=== PATIENT | male | born 1945 | race Caucasian/White ===

== ENCOUNTER → 2024-04-08 09:37 | Outpatient (BNVA) | payer MEDICARE, SELFPAY | PROVIDERS: PCP Internal Medicine; Visit Provider Internal Medicine Rheumatology ==

== ENCOUNTER 2024-04-15 10:16 | Outpatient (AMB) | payer MEDICARE, SELFPAY ==
[2024-04-15 10:40] VITALS: BP 130/74; PULSE 80; O2SAT 98; BMI 19.2
--- NOTE | 2024-04-15 10:40 | A.OFFVIS_ITS ---
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 He last saw Dr. Contreras at the arthritis treatment center on 10/07/2023. 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 Denies joint stiffness. He feels well. Infrequently he will waking up from sleep with numb hands and has to shake it off. He has pain in left buttocks area with acute onset and spontaneous resolution. It occurs occasionally. He applies heat to the area with benefit. He he has not self medicating. [facility] Medical History (Updated 04/15/24 @ 11:41 by Kelvin Contreras MD) Colostomy care BNC (bladder neck contracture) Diverticulitis Thalassemia Pulmonary nodules Hyperlipidemia Glaucoma Deaf Allergic rhinitis Surgical History (Updated 04/15/24 @ 11:12 by Ruby Adler CMA) S/P laparoscopic colectomy H/O transurethral resection of prostate Family History (Updated 04/15/24 @ 11:14 by Ruby Adler CMA) Mother No problems noted. Social History (Updated 04/15/24 @ 11:15 by Ruby Adler CMA) Household Members: Spouse Alcohol intake: never Patient Tobacco Use Status: Never used Tobacco Review of Systems Const All systems reviewed & are unremarkable except as noted in HPI and below Physical Exam Vital Signs: Last Vital Signs Pulse 80 04/15/24 10:40 BP 130/74 04/15/24 10:40 Pulse Ox 98 04/15/24 10:40 Oxygen Delivery Method Room Air 04/15/24 10:40 BMI result Body Mass Index 19.2 Const Other: General: Comfortable CVS: RRR Respiratory: clear to auscultation bilaterally. Good respiratory effort Skin: No lesions seen MSK: No tenderness of any joints. No synovitis. 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 Shoulder abduction is about 160 degrees bilateral. He has limited full internal rotation. External rotation of bilateral shoulders is good. Unable to elicit tenderness of gluteal region but he reports that he has pain localized to left lateral gluteal region. Limited full external rotation of bilateral hips. Knee flexion bilateral is 45 degrees. Assessment & Plan Assessment & Plan (1) Muscle strain of left gluteal region: Comment: Intermittent. Discussed conservative management. Code(s): S76.012A - Strain of muscle, fascia and tendon of left hip, initial encounter Category: Medical Qualifiers: Encounter type: initial encounter Qualified Code(s): S76.012A - Strain of muscle, fascia and tendon of left hip, initial encounter Plan: PT ordered. Patient prefers to have PT in [facility] near his home. Requisition given to patient Continue to apply heat to affected area as needed Return to clinic in 6 months or sooner if needed with prosthetic makeup designer. (2) Rheumatoid arthritis: Comment: Initial diagnosis. He was on hydroxychloroquine but it was discontinued due to retinal changes. He has had history of episodic joint pain and swelling. History of being diagnosed with gout (not crystal proven). Repeat uric acid levels have been less than 6. I have recommended for him to have clinic visit while he is in a flare for possible diagnostic arthrocentesis. Asymptomatic without deforming joint changes suggestive of inflammatory arthritis. He has not had an episode in a year. Code(s): M06.9 - Rheumatoid arthritis, unspecified Category: Medical Qualifiers: Rheumatoid arthritis location: unspecified site Rheumatoid factor presence: unspecified presence Qualified Code(s): M06.9 - Rheumatoid arthritis, unspecified Plan: Return to clinic in 6 months with prosthetic makeup designer. Monitor clinically (3) Gout: Comment: Presumed diagnosis due to episodic joint swelling involving his feet. He has not had an episode in a year. Code(s): M10.9 - Gout, unspecified Category: Medical Qualifiers: Chronicity: unspecified Gout etiology: unspecified cause Gout site: foot Laterality: unspecified laterality Qualified Code(s): M10.9 - Gout, unspecified Plan: Monitor clinically I have asked him to call office for urgent appointment if he having an episode of joint swelling and pain. He will need prosthetic makeup designer scheduled for visit. Orders: Orders PT Evaluation and Treatment Today S76.012A - Strain of muscle, fascia and tendon of left hip, initial encounter Coding Level of Care Code Est Pt Level 4 (77124) Complex EM visit Add On G2211 Diagnoses Muscle strain of left gluteal region, initial encounter S76.012A Encounter type: initial encounter Rheumatoid arthritis, involving unspecified site, unspecified whether rheumatoid factor present M06.9 Rheumatoid arthritis location: unspecified site Rheumatoid factor presence: unspecified presence Gout of foot, unspecified cause, unspecified chronicity, unspecified laterality M10.9 Chronicity: unspecified Gout etiology: unspecified cause Gout site: foot Laterality: unspecified laterality
--- OUTSIDE RECORDS SUMMARY | 2024-04-15 12:14 | XMS_ITS | Clinical Summary ---
Author Organization [facility] [address] [facility] Building Address [address] [place] [address] Phone Care Team Providers Care Lab Rep Name Role Phone Dillon Lal MD Primary Care Provider [phone] Allergies Active Allergy Reactions Criticality Noted Date Comments Oxycodone-Acetaminophe n Nausea And Vomiting 05/17/2005 Sulfa (Sulfonamide Antibiotics) 05/17/2005 Other Reaction(s): Numbness, tingling or swelling of the lips, tongue or mouth Terazosin Hcl 08/22/2005 syncopal Medications Medication Sig Dispensed Refills Start Date End Date Status ascorbic acid (VITAMIN C) 500 mg tablet Take 500 mg by mouth daily. Active calcium carbonate-vitamin D3 (Calcium 600 + D,3,) 600 mg-5 mcg (200 unit) per tablet Take 1 Tablet by mouth daily. Active ibuprofen (ADVIL,MOTRIN) 600 mg tablet Take 1 Tablet by mouth daily. 03/06/2023 Active multivit-min/folic acid/lutein (CENTRUM SILVER ORAL) Take by mouth. Active polyethylene glycol (PEG) 17 gram/dose oral powder Take 17 g by mouth daily. Active cetirizine (ZyrTEC) 10 mg tablet Take 10 mg by mouth daily. Active cholecalciferol (VITAMIN D-3) 25 mcg (1,000 unit) tablet Take 1,000 Units by mouth daily. Active ferrous sulfate 325 mg (65 mg elemental iron) tablet Take 325 mg by mouth daily. Active fluticasone propionate (FLONASE) 50 mcg/actuation nasal spray 1 spray per nostril twice per day, as needed for nasal congestion 05/16/2021 Active latanoprost (XALATAN) 0.005 % ophthalmic solution 1 Drop at bedtime. ou Active psyllium (METAMUCIL) 0.52 gram capsule Take by mouth. Act sho saw palmetto 450 mg capsule Take 450 mg by mouth daily. Active timolol (TIMOPTIC) 0.5 % ophthalmic solution 1 Drop 2 times daily. Active traMADoL (ULTRAM) 50 mg tablet Take 1 Tablet by mouth 3 times daily as needed. 12/13/2022 Active Active Problems Problem Noted Date Diagnosed Date Thalassemia 02/12/2024 Nuclear sclerosis of both eyes 12/11/2023 Overview (02/12/2024): Glaucoma. Seen by eye doc in 2023 JOHN (obstructive sleep apnea) 07/03/2023 Tubular adenoma of colon 02/05/2022 Trochanteric bursitis of right hip 06/27/2021 Positive FIT (fecal immunochemical test) 021 Hypercholesteremia 04/15/2020 Environmental and seasonal allergies 06/26/2018 Pulmonary nodules/lesions, multiple 05/12/2015 Glaucoma 06/04/2014 Diverticulitis large intestine 03/22/2008 Overview (02/12/2024): Required colostomy 07/2018, then reversal 05/25/[address] Don Cervical osteoarthritis 11/07/2007 Overview (02/12/2024): MRI with multiple levels of DJD - 2007 Diverticulitis of colon without hemorrhage 08/22 Overview (02/12/2024): As of 01/2018, hx since 2008 of 6 attacks of diverticulitis, no serious complications. [facility] +sigmoid uncomplicated diverticulitis 01/25/18 CT Segmental colon resection/colostomy 2019 Colostomy reversal 2019 Deaf 07/18/2005 Pain in joint involving shoulder region 05/18/19 Overview (02/12/2024): AC DJD, impingment Seronegative rheumatoid arthritis 05/17/2005 Overview (02/12/2024): sero neg, FRANCI pos on hydroxychloroquine; last eye check-up 07/2010. 2012; May 2014, 2017, Apr 2018, 06/03 Some retinal changes 03/06: hydroxychloroquine was stopped Encounters Date Type Department Care Team Description 04/13/2024 8:30 AM EST Office Visit Internal Medicine - [facility] [address] [place] [id number] Dillon Lal MD Routine general medical examination at a health care facility (Primary Dx); Screening for prostate cancer; Other thalassemia (CMS/HCC) from Last 3 Months Immunizations Name Administration Dates Next Due Influenza trivalent, 0.5mL ( Fluad) 65yo and older 12/22/2019,12/27/2017,12/16/2016 Influenza trivalent, 0.5mL, preservative free (Fluarix; FluLaval; Fluzone) ages 6mo and older (Afluria) 3 years and older 12/31/2014,01/08/2014,12/29/2012,12/27,12/11/2010,01/18/2010,12/02/2008 Influenza, Unspecified 12/16/2020 PPD Test 05/12/2001 [employer] SARS-CoV-2 COVID-19, mRNA, LNP-S, preservative free 07/22/2021,07/02/2020,06/11/2020,03/24 Pneumococcal conjugate 13 va lent (Prevnar 13, PCV13) 2mo and older 03/10/2015 Pneumococcal polysaccharide 23 valent (Pneumovax 23) 2yo and older 03/03/2012,07/18/2005 Td Tetanus diptheria (Tdvax) 7yo and older 09/22/2021,08/18/2007,05/12/2001 Tdap Tetanus diptheria acell ular pertussis (Boostrix; Adacel) 7yo and older 10/29/2011 Zoster Live 02/16/2011 Zoster recombinant (Shingrix ) 19yo and older 08/16/2021 Surgical History Surgery Date Site/Laterality Comments FLEXIBLE SIGMOIDOSCOPY 1997 PROCEDURE: HISTORICAL FLEXIBLE SIGMOIDOSCOPY; COMMENT: This was a Flex Sig, not a colonoscopy, neg TURP / TRANSURETHRAL INCISION / DRAINAGE PROSTATE 11/14/2005 PROCEDURE: HISTORICAL TURP; COMMENT: Dr. Champion COLONOSCOPY 03/22/2008 PROCEDURE: HISTORICAL COLONOSCOPY; COMMENT: diverticulosis OTHER SURGICAL HISTORY 08/15/2018 PROCEDURE: MT LAPS COLECTOMY PRTL W/END CLST & CLSR DSTL SGM; COMMENT: [facility]; Dr. Don OTHER SURGICAL HISTORY 03/25/2019 PROCEDURE: MT CYSTOURETHROSCOPY W/INTERNAL URETHROTOMY MALE; COMMENT: Dr Zacarias Handley did bladder neck contracture urethrotomy OTHER SURGICAL HISTORY 05/25/2019 PROCEDURE: MT REVJ COLOSTOMY COMP RCNSTJ IN-DEPTH SPX; COMMENT: colostomy closure/removal with lysis of extensive adhesions Dr Don COLONOSCOPY 06/21/2020 PROCEDURE: HISTORICAL COLONOSCOPY; COMMENT: 4 mm descending colon polyp: Tubular adenoma. ROTATOR CUFF REPAIR 12/13/2022 Left PROCEDURE: HISTORICAL ROTATOR CUFF REPAIR; COMMENT: Left rotator cuff repair and augmentation. Biceps tenotomy. Subacromial decompression. 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 Abdominal pain, epigastric 05/06/2006 DX:Ab dominal pain, epigastric; COMMENT: Negative upper GI endoscopy 05.06.06. Probably caused by ibuprofen, resolution with discontinuation of ibuprofen. Cervical osteoarthritis 11/07/2007 DX:Cervi oliver osteoarthritis; COMMENT: MRI with multiple levels of DJD - 2007 Rheumatoid arthritis(714.0) 05/17/2005 DX:R heumatoid arthritis(714.0); COMMENT: sero neg, FRANCI pos on hydroxychloroquine; last eye check-up 11/2007 Diverticulosis of colon (wit hout mention of hemorrhage) 03/22/2008 DX:Diverticulosis of colon ( without mention of hemorrhage); COMMENT: Incidental finding at colonoscopy 03/22/2008. 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/2012 DX:Posterior vitreous detach ment of left eye; COMMENT: Dr Tejada Glaucoma 06/04/2014 DX:Glaucoma Glaucoma 06/04/2014 DX:Glaucoma Pulmonary nodules/lesions, multiple 05/12/2015 DX:Pulmonary nodules/lesions, multiple JOHN (obstructive sleep apnea) 07/03/2023 DX :JOHN (obstructive sleep apnea) Family History Medical History Relation Name Comments Colon cancer Neg Hx Relation Name Status Comments Father (Age 60's) kidney f ailure Pt is an only child Mother (Age 82) stroke Social History Tobacco Use Types Packs/Day Years Used Date Smoking Tobacco: Never Smokeless Tobacco: Never Tobacco Cessation:Counseling Given: Not Answered Alcohol Use Standard Drinks/Week Comments No 0 (1 standard drink = 0.6 oz pur e alcohol) Sex and Gender Information Value Date Recorded Sex Assigned at Not on file Gender Identity Not on file Sexual Orientation Not on file Job Start Date Occupation Industry Not on file Not on file Not on file Obstetrics History Last Filed Vital Signs Vital Sign Reading Time Taken Comments Blood Pressure 130/80 04/13/2024 8:35 AM EST Pulse 78 04/13/2024 8:35 AM EST Temperature - - Respiratory Rate - - Oxygen Saturation - - Inhaled Oxygen Concentration - - Weight 58.8 kg (129 lb 9.6 oz) 04/13/2024 8:35 A M EST Height 168.9 cm (5' 6.5 ) 04/13/2024 8:35 AM EST Body Mass Index 20.6 04/13/2024 8:35 AM EST Plan of Treatment Upcoming Encounters Date Type Department Care Team (Late st Contact Info) Description 08/25/2024 1:00 PM EDT Office Visit Internal Medicine - [facility] [address] [place], [place] [phone] Dillon Lal MD [address] [place] [address] [place] [id number] Health Maintenance Due Date Last Done Comments RSV Immunization Patients 60+ Years Old (1 - 1-dose 75+ series) 2021 Depression Screening 02/24/2022 Falls Risk Assessment 02/24/2022 Medicare Annual Wellness Visit 02/24/2022 Social Influencers of Health Screening 02/24/2022 Colorectal Cancer Screening: Colonoscopy 06/22/2027 06/21/2020 Cholesterol Screening (Lipid Panel) 08/04/2028 08/05/2023, 08/05/2023 DTaP,Tdap,and Td Vaccines (5 - Td or Tdap) 09/23/2031 09/22/2021, 10/29/2011, 08/18/2007, Additional history exists Hepatitis C Screening Completed 03/08/2014 Zoster Vaccines Completed 10/18/2021, 06/0 03/2021, 02/16/2011 Pneumococcal Vaccine: 65+ Years Completed 02/02/2022, 03/10/2015, 03/03/2012, Additional history exists COVID-19 Vaccine Completed 12/04/2023, 05/2022, 12/08/2021, Additional history exists Influenza Vaccine Completed 12/04/2023, , 11/23/2021, Additional history exists HIB Vaccines Aged Out No longer eligi ble based on patient's age to complete this topic HPV Vaccines Aged Out No longer eligi ble based on patient's age to complete this topic Hepatitis A Vaccines Aged Out No long er eligible based on patient's age to complete this topic Hepatitis B Vaccines Aged Out No long er eligible based on patient's age to complete this topic IPV Vaccines Aged Out No longer eligi ble based on patient's age to complete this topic MMR Vaccines Aged Out No longer eligi ble based on patient's age to complete this topic Meningococcal ACWY Vaccine Aged Out N o longer eligible based on patient's age to complete this topic RSV Immunization Patients Under 20 months Aged Out No longer eligible based on patient's age to complete this topic Varicella Vaccines Aged Out No longer eligible based on patient's age to complete this topic Procedures Procedure Name Priority Date/Time Associated Diagnosis Comments LIPID PANEL Routine 08/05/2023 COLONOSCOPY Routine 06/21/2020 HEPATITIS C SCREENING Routine 03/08/2014 from Last 3 Months or Most Recently Relevant to Health Maintenance Results * (ABNORMAL) Lipid panel (08/05/2023) LDL/HDL Ratio 3 0 - 4 Triglycerides 78 0 - 150 mg/dL Cholesterol 167 0 - 200 mg/dL HDL 51 40 mg/dL LDL Cholesterol 101(A) 0 - 100 mg/dL Blood Venous blood specimen / Unknown Historical Provider LAB BLOOD ORDERAB LES * Colonoscopy (06/21/2020) Colonoscopy No Interpretation , Abstracted Anatomical Region Laterality Modality Other Historical Provider MD BELTRAN MAINCHERYL E * Hepatitis C Screening (03/08/2014) Hepatitis C Screening Abstracted Historical Provider MD BELTRAN MAINCHERYL E from Last 3 Months or Most Recently Relevant to Health Maintenance Advance Directives Documents on File Type Date Recorded 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 Color 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 Expl 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 Health Care Decision (hx) 12/14/2022 AD UMAÑA DIRECTIVE Health Care Decision (hx) 12/14/2022 AD UMAÑA DIRECTIVE Health Care Decision (hx) 06/21/2020 AD UMAÑA DIRECTIVE Health Care Decision (hx) 06/21/2020 AD UMAÑA DIRECTIVE Health Care Decision (hx) 06/21/2020 AD UMAÑA DIRECTIVE Health Care Decision (hx) 06/21/2020 AD UMAÑA DIRECTIVE Health Care Decision (hx) 06/21/2020 AD UMAÑA DIRECTIVE Health Care Decision (hx) 06/21/2020 AD UMAÑA DIRECTIVE Health Care Decision (hx) 06/21/2020 AD UMAÑA DIRECTIVE Health Care Decision (hx) 05/25/2019 AD UMAÑA DIRECTIVE Health Care Decision (hx) 05/25/2019 AD UMAÑA DIRECTIVE Health Care Decision (hx) 05/25/2019 AD UMAÑA DIRECTIVE Health Care Decision (hx) 05/25/2019 AD UMAÑA DIRECTIVE Health Care Decision (hx) 05/25/2019 AD UMAÑA DIRECTIVE Health Care Decision (hx) 05/25/2019 AD UMAÑA DIRECTIVE Health Care Decision (hx) 05/25/2019 AD UMAÑA DIRECTIVE Health Care Decision (hx) 05/25/2019 AD UMAÑA DIRECTIVE Health Care Decision (hx) 05/25/2019 AD UMAÑA DIRECTIVE Health Care Decision (hx) 08/13/2018 AD UMAÑA DIRECTIVE Health Care Decision (hx) 08/13/2018 AD UMAÑA DIRECTIVE Health Care Decision (hx) 08/13/2018 AD UMAÑA DIRECTIVE Health Care Decision (hx) 08/13/2018 AD UMAÑA DIRECTIVE Health Care Decision (hx) 08/13/2018 AD UMAÑA DIRECTIVE Health Care Decision (hx) 08/13/2018 AD UMAÑA DIRECTIVE Health Care Decision (hx) 08/13/2018 AD UMAÑA DIRECTIVE Health Care Decision (hx) 08/13/2018 AD UMAÑA DIRECTIVE Health Care Decision (hx) 08/13/2018 AD UMAÑA DIRECTIVE Health Care Decision (hx) 08/13/2018 AD UMAÑA DIRECTIVE Care Teams Lab Rep Relationship Specialty Start Date End Date Dillon Lal MD [address] [place] [id number] PCP - General Internal Medicine 11/16/19
--- OUTSIDE RECORDS SUMMARY | 2024-04-15 12:14 | XMS_ITS | Encounter Summary ---
Author Organization [facility] Address [address] [place] [address] Care Team Providers Care Housing Case Manager Name Role Phone Dillon Lal MD Primary Care Provider [phone] Reason for Visit * Reason Comments Annual Exam Encounter Details Date Type Department Care Team (Late st Contact Info) Description 04/13/2024 8:30 AM EST Office Visit Internal Medicine - [address] [phone] Dillon Lal MD [address] [place] [id number] Routine general medical examination at a health care facility (Primary Dx); Screening for prostate cancer; Other thalassemia (CMS/HCC) Social History Tobacco Use Types Packs/Day Years [...] file Not on file Not on file documented as of this encounter Last Filed Vital Signs Vital Sign Reading [...] Mass Index 20.6 04/13/2024 8:35 AM EST documented in this encounter Progress Notes * Dillon Lal MD - 04/13/2024 8:30 AM EST CHIEF COMPLAINT: Chief Complaint Patient presents with Annual Exam IDENTIFIER:Ty Mosqueda is a 78 y.o. old male who presents for evaluation of general medical health. HPI: Patient is a 78-year-old man who presents to the office today for his physical. Patient is deaf and anime designer services were used. [facility] #[id number] Patient followed up with orthopedics on 11/27/2023 to follow-up on his left shoulder. He has undergone left rotator cuff repair (12/05/2022) and did well postsurgery. Advised to follow-up as needed. He followed up with db2 systems programmer on 12/11/2023 for his glaucoma. He followed up with his shear scrapman on 10/08/2023 for his rheumatoid arthritis, gout. No recent flares. He has previously undergone a sleep study done previously on 11/30/2022 which showed mild obstructive sleep apnea and associated significant oxygen desaturations. He was referred to pulmonology but donot have the notes. Patient has a history of lung nodules which have remained stable. His CT chest done 2018 was stableand no further radiological work-up was needed. He does not smoke cigarettes. He has a history of thalassemia and his anemia levels have been stable. Patient's last colonoscopy was done on 06/21/2020 which revealed a polyp in the mid descending colon,diverticulosis. Biopsy revealed tubular adenoma. Repeat colonoscopy is recommended again in 7 to 10years as per GI. ROS: GENERAL: No malaise, significant weight loss or fever HEENT: see hpi NECK: No lumps, goiter, pain or significant neck swelling RESPIRATORY: No cough, wheezing or shortness of breath CARDIOVASCULAR: No chest pain, leg swelling or palpitations GI: No abdominal discomfort, blood in stools or black stools : No dysuria, frequency or incontinence MUSCULOSKELETAL: see hpi SKIN: No lesions, rash or itching PSYCH: No sleep disturbance, mood disorder or recent psychosocial stressors. HEMATOLOGY/LYMPHOLOGY see hpi ENDOCRINE: No cold or heat intolerance, polyuria, polydipsia or goiter. NEURO: No persistent headache, syncope, seizures, weakness or numbness PAST MEDICAL HISTORY: Patient Active Problem List Diagnosis Date Noted Thalassemia 02/12/2024 Nuclear sclerosis of both eyes 12/11/2023 JOHN (obstructive sleep apnea) 07/03/2023 Tubular adenoma of colon 02/05/2022 Trochanteric bursitis of right hip 06/27/2021 Positive FIT (fecal immunochemical test) 04/29/2020 Hypercholesteremia 04/15/2020 Environmental and seasonal allergies 06/26/2018 Pulmonary nodules/lesions, multiple 05/12/2015 Glaucoma 06/04/2014 Diverticulitis large intestine 03/22/2008 Cervical osteoarthritis 11/07/2007 Diverticulitis of colon without hemorrhage 08/22/2005 Deaf 07/18/2005 Pain in joint involving shoulder region 05/17/2005 Seronegative rheumatoid arthritis (CMS/HCC) 05/17/2005 PAST SURGICAL HISTORY: Past Surgical History: Procedure Laterality Date COLONOSCOPY 03/22/2008 PROCEDURE: HISTORICAL COLONOSCOPY; COMMENT: diverticulosis COLONOSCOPY 06/21/2020 PROCEDURE: HISTORICAL COLONOSCOPY; COMMENT: 4 mm descending colon polyp: Tubular adenoma. FLEXIBLE SIGMOIDOSCOPY 1997 PROCEDURE: HISTORICAL FLEXIBLE SIGMOIDOSCOPY; COMMENT: This was a Flex Sig, not a colonoscopy, neg OTHER SURGICAL HISTORY 08/15/2018 PROCEDURE: AR LAPS COLECTOMY PRTL W/END CLST & CLSR DSTL SGM; COMMENT: [facility]; Dr. Don OTHER SURGICAL HISTORY 03/25/2019 PROCEDURE: AR CYSTOURETHROSCOPY W/INTERNAL URETHROTOMY MALE; COMMENT: Dr Zacarias Handley did bladder neck contracture urethrotomy OTHER SURGICAL HISTORY 05/25/2019 PROCEDURE: AR REVJ COLOSTOMY COMP RCNSTJ IN-DEPTH SPX; COMMENT: colostomy closure/removal with lysis of extensive adhesions Dr Don ROTATOR CUFF REPAIR Left 12/13/2022 PROCEDURE: HISTORICAL ROTATOR CUFF REPAIR; COMMENT: Left rotator cuff repair and augmentation. Biceps tenotomy. Subacromial decompression. TURP / TRANSURETHRAL INCISION / DRAINAGE PROSTATE 11/14/2005 PROCEDURE: HISTORICAL TURP; COMMENT: Dr. Champion IMMUNIZATIONS/INJECTIONS: Most Recent Immunizations Administered Date(s) Administered COVID-19 (Moderna/Spikevax) 12yo and older 12/04/2023 Influenza trivalent, 0.5mL (Fluad) 65yo and older 12/22/2019 Influenza trivalent, 0.5mL, preservative free (Fluarix; FluLaval; Fluzone) ages 6mo and older (Afluria) 3 years and older 12/31/2014 Influenza, Unspecified 12/16/2020 Moderna (age 6mo & older) Bivalent, COVID-19, 0.5 mL or 0.25 mL dosage 12/08/2021 PPD Test 05/12/2001 Pfizer (ages 12 & older) Bivalent, COVID-19 10/18/2022 Pfizer SARS-CoV-2 COVID-19, mRNA, LNP-S, preservative free 07/22/2021 Pneumococcal conjugate 13 valent (Prevnar 13, PCV13) 2mo and older 03/10/2015 Pneumococcal polysaccharide 23 valent (Pneumovax 23) 2yo and older 03/03/2012 Td Tetanus diptheria (Tdvax) 7yo and older 09/22/2021 Tdap Tetanus diptheria acellular pertussis (Boostrix; Adacel) 7yo and older 10/29/2011 Zoster Live 02/16/2011 Zoster recombinant (Shingrix) 19yo and older 08/16/2021 HEALTH MAINTENANCE: Health Maintenance Topic Date Due RSV Immunization Patients 60+ Years Old (1 - 1-dose 75+ series) Never done Falls Risk Assessment Never done Depression Screening Never done Social Influencers of Health Screening Never done Medicare Annual Wellness Visit Never done Colorectal Cancer Screening: Colonoscopy 06/22/2027 Cholesterol Screening (Lipid Panel) 08/04/2028 DTaP,Tdap,and Td Vaccines (5 - Td or Tdap) 09/23/2031 Influenza Vaccine Completed Pneumococcal Vaccine: 65+ Years Completed Zoster Vaccines Completed Hepatitis C Screening Completed COVID-19 Vaccine Completed HIB Vaccines Aged Out Hepatitis B Vaccines Aged Out IPV Vaccines Aged Out Hepatitis A Vaccines Aged Out MMR Vaccines Aged Out Varicella Vaccines Aged Out Meningococcal ACWY Vaccine Aged Out HPV Vaccines Aged Out RSV Immunization Patients Under 20 months Aged Out SOCIAL HISTORY: Social History Tobacco Use Smoking status: Never Smokeless tobacco: Never Substance Use Topics Alcohol use: No FAMILY HISTORY: Family Status Relation Name Status Neg Hx (Not Specified) Father at age 60's kidney failure Pt is an only child Mother at age 82 stroke No partnership data on file Family History Problem Relation Name Age of Onset Colon cancer Neg Hx ACTIVE MEDICATIONS: No outpatient medications have been marked as taking for the 04/13/24 encounter (Office Visit) with Dillon Lal MD. Allergies Allergen Reactions Oxycodone-Acetaminophen Nausea And Vomiting Sulfa (Sulfonamide Antibiotics) Other Reaction(s): Numbness, tingling or swelling of the lips, tongue or mouth Terazosin Hcl syncopal PHYSICAL EXAM: Visit Vitals BP 130/80 Pulse 78 Ht 1.689 m (66.5 ) Wt 58.8 kg (129 lb 9.6 oz) BMI 20.60 kg/m?? Smoking Status Never BSA 1.67 m?? Body mass index is 20.6 kg/m??. APPEARANCE: Alert and in no acute distress EYES: PERRLA, conjunctiva and sclera normal. EARS: External ears normal. NOSE/SINUS: Nares normal. Septum midline. Mucosa normal. No drainage or sinus tenderness. THROAT: no erythema or exudates NECK: Neck supple, no adenopathy, thyroid symmetric and of normal size HEART: RRR with normal S1 and S2 ,no murmurs LUNG: clear to auscultation LYMPH NODES: grossly normal ABDOMEN: Bowel sounds normoactive, no bruits, soft, non-tender, without organomegaly or palpable masses (MALE): Patient declined RECTAL (MALE): patient declined BACK: No pain to palpation with good flexion and extension EXTREMITIES: Extremities warm and well perfused without edema NEURO: Awake, alert and oriented x 3 with symmetrical reflexes SKIN: Skin color, texture, turgor normal. LABS: IMPRESSION: 1. Routine general medical examination at a health care facility 2. Screening for prostate cancer 3. Other thalassemia (CMS/HCC) ADDITIONAL ORDERS: None Orders Placed This Encounter Procedures CBC and differential Basic metabolic panel Aspartate aminotransferase Alanine aminotransferase Lipid panel with reflex to direct LDL Prostate specific antigen screen Vitamin B12 and folate Iron PLAN: Screening PSA levels ordered. Anemia panel ordered. - Prostate cancer screening with digital rectal exam and PSA testing in those expected to live for at least ten years - ordered - Colon cancer screening (colonoscopy every 10 years/annual FOBT plus flexi sigmoidoscopy every 5 years/double-contrast BE every 5 years/Cologuard every 3 years/Annual FOBT) - up to date. May discontinue at age 80 at the discretion of patient and provider. - Testicular cancer screening, which includes self-exam teaching - Blood pressure screening yearly - Cholesterol screening every five years - up to date - Nutritional and exercise counseling - patient advised to eat breakfast and avoid eating after dinner - Counseling of injury prevention including fire prevention, smoke alarms and seat belt usage - Prevention of and/or testing for infectious diseases, which may include Chlamydia, Gonorrhea, Syphilis, HIV, Hepatitis C and Tuberculosis - advice about STD prevention provided - Education about skin cancer - Recommendations about immunizations - patient is up-to-date on immunizations - Screening for substance abuse (including tobacco, alcohol, and recreational drugs) - see Substance & Sexuality section of medical record - Genetic cancer risk screening - NO INDICATION: Hereditary Cancer Syndrome Risk Assessment completed and evaluated. No indication found for genetic testing at this time. - In addition to reviewing these issues, I have reviewed the following sections of the chart: Past Medical History, Social History, and Social History - Did you have a dental visit in the last 12 months? Yes - Did you have a dental problem in the last 6 months? No Today's documentation was made using voice recognition software.This note may contain grammatical errors secondary to this software. documented in this encounter Plan of Treatment Upcoming Encounters Date Type Department Care Team (Late st Contact Info) Description 08/25/2024 1:00 PM EDT [facility] [address] [place] [phone] Dillon Lal MD [address] [place] [phone] Scheduled Orders Name Type Priority Associated Diagnoses Orde r Schedule CBC and differential Lab Routine Other thalassemia (CMS/HCC) 1 Occurrences starting 04/13/2024 until 04/13/2025 Basic metabolic panel Lab Routine Routine general medical examination at a health care facility 1 Occurrences starting 04/13/2024 until 04/13/2025 Aspartate aminotransferase Lab Routine Routine general medical examination at a health care facility 1 Occurrences starting 04/13/2024 until 04/13/2025 Alanine aminotransferase Lab Routine Routine general medical examination at a health care facility 1 Occurrences starting 04/13/2024 until 04/13/2025 Lipid panel with reflex to direct LDL Lab Routine Routine general medical examination at a [facility] care facility 1 Occurrences starting 04/13/2024 until 04/13/2025 Prostate specific antigen screen Lab Routine Screening for prostate cancer 1 Occurrences starting 04/13/2024 until 04/13/2025 Vitamin B12 and folate Lab Routine Other thalassemia (CMS/HCC) 1 Occurrences starting 04/13/2024 until 04/13/2025 Iron Lab Routine Other thalassemia (CMS/HCC) 1 Occurrences starting 04/13/2024 until 04/13/2025 documented as of this encounter Visit Diagnoses Diagnosis Routine general medical examination at a health care facility- Primary Screening for prostate cancer Special screening for malignant neoplasm of prostate Other thalassemia (CMS/HCC) Other thalassemia documented in this encounter Care Teams Housing Case Manager Relationship Specialty Start Date End Date Dillon Lal MD [address] [place] [phone] PCP - General Internal Medicine 11/16/19 documented as of this encounter
== END 2024-04-15 11:32 | disposition home or self-care (01) ==
PROVIDERS: PCP Internal Medicine; Visit Provider Internal Medicine Rheumatology
DX: S76.012A Strain of muscle, fascia and tendon of left hip, initial encounter (principal); M06.9 Rheumatoid arthritis, unspecified; M10.9 Gout, unspecified
CPT/HCPCS: 99214; G2211

== ENCOUNTER → 2024-04-15 10:16 | Outpatient (BNVA) | payer MEDICARE, SELFPAY | PROVIDERS: PCP Internal Medicine; Visit Provider Internal Medicine Rheumatology | DX: S76.012A Strain of muscle, fascia and tendon of left hip, initial encounter (principal); M06.9 Rheumatoid arthritis, unspecified; M10.9 Gout, unspecified; X58.XXXA Exposure to other specified factors, initial encounter; Y93.9 Activity, unspecified; Y92.9 Unspecified place or not applicable; Y99.9 Unspecified external cause status | CPT/HCPCS: 99212 ==

== ENCOUNTER 2024-10-13 10:29 | Outpatient (AMB) | payer MEDICARE, SELFPAY ==
[2024-10-13 10:31] VITALS: BP 110/80; PULSE 71; O2SAT 95; BMI 19.3
--- NOTE | 2024-10-13 10:31 | MHC.OFFVIS ---
Vital Signs 10/13/24 10:31 Height 5 ft 7 in Weight 123 lb 4 oz BMI 19.3 BP 110/80 Blood Pressure Location Rt brachial Position Sitting Pulse 71 Pulse Source Pulse Oximeter Pulse Oximetry (%) 95 Oxygen Delivery Method Room Air Intake Visit Reasons: Follow up 6mo Intake Note: Patient presents today for follow up on Rheumatoid arthritis. Allergies acetaminophen (From Roxicet) Allergy (Mild, Verified 10/13/24 10:31) nausea, vomiting oxycodone (From Roxicet) Allergy (Mild, Verified 10/13/24 10:31) nausea, vomiting Sulfa (Sulfonamide Antibiotics) Allergy (Mild, Verified 10/13/24 10:31) Swelling terazosin Allergy (Mild, Verified 10/13/24 10:31) syncope HPI HPI Follow up 6mo: Details: Doing well. No flares. He completed PT for back strengthening. He was told by his physical therapist to change his mattress, which he has had for 17 years. Since changing his mattress he has had no back pain. He continues to do the exercise program at home daily. [facility] Medical History Colostomy care BNC (bladder neck contracture) Diverticulitis Thalassemia Pulmonary nodules Hyperlipidemia Glaucoma Deaf Allergic rhinitis Surgical History S/P laparoscopic colectomy H/O transurethral resection of prostate Family History Mother No problems noted. Social History Household Members: Spouse Alcohol intake: never Patient Tobacco Use Status: Never used Tobacco Physical Exam Vital Signs: Last Vital Signs Pulse 71 10/13/24 10:31 BP 110/80 10/13/24 10:31 Pulse Ox 95 10/13/24 10:31 Oxygen Delivery Method Room Air 10/13/24 10:31 BMI result Body Mass Index 19.3 Const Other: General: Comfortable CVS: RRR Respiratory: clear to auscultation bilaterally. Good respiratory effort Skin: No lesions seen MSK: No tenderness of any joints. No synovitis. 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 Shoulder abduction is about 170 degrees bilateral. Normal internal and external rotation of shoulders. Limited full external rotation of bilateral hips. Knee flexion bilateral is 90 degrees. Assessment & Plan Assessment & Plan (1) Muscle strain of left gluteal region: Comment: Resolved. He completed physical therapy. Changing his mattress alleviated his pain. Code(s): S76.012A - Strain of muscle, fascia and tendon of left hip, initial encounter Category: Medical Qualifiers: Encounter type: initial encounter Qualified Code(s): S76.012A - Strain of muscle, fascia and tendon of left hip, initial encounter Plan: Continue home exercise program daily. (2) Rheumatoid arthritis: Comment: Initial diagnosis. He was on hydroxychloroquine but it was discontinued due to retinal changes. He has had history of episodic joint pain and swelling. History of being diagnosed with gout (not crystal proven). Repeat uric acid levels have been less than 6. I have recommended for him to have clinic visit while he is in a flare for possible diagnostic arthrocentesis. Asymptomatic without deforming joint changes suggestive of inflammatory arthritis. He has not had an episode in a year and a half. Code(s): M06.9 - Rheumatoid arthritis, unspecified Category: Medical Qualifiers: Rheumatoid arthritis location: unspecified site Rheumatoid factor presence: unspecified presence Qualified Code(s): M06.9 - Rheumatoid arthritis, unspecified Plan: Return to clinic in 12 months with exterior designer or sooner if needed Monitor clinically (3) Gout: Comment: Presumed diagnosis due to episodic joint swelling involving his feet. He has not had an episode in a year and a half. Code(s): M10.9 - Gout, unspecified Category: Medical Qualifiers: Gout site: foot Gout etiology: unspecified cause Chronicity: unspecified Laterality: unspecified laterality Qualified Code(s): M10.9 - Gout, unspecified Plan: Monitor clinically I have asked him to call office for urgent appointment if he having an episode of joint swelling and pain. He will need exterior designer scheduled for visit. Coding Level of Care Code Est Pt Level 3 (18573) Complex EM visit Add On G2211 Diagnoses Muscle strain of left gluteal region, initial encounter S76.012A Encounter type: initial encounter Rheumatoid arthritis, involving unspecified site, unspecified whether rheumatoid factor present M06.9 Rheumatoid arthritis location: unspecified site Rheumatoid factor presence: unspecified presence Gout of foot, unspecified cause, unspecified chronicity, unspecified laterality M10.9 Gout site: foot Gout etiology: unspecified cause Chronicity: unspecified Laterality: unspecified laterality
--- OUTSIDE RECORDS SUMMARY | 2024-10-13 11:29 | XMS_ITS ---
Author Name [facility] Organization Unknown Care Team Organization Name Specialty Phone Email Start Date End Da te [facility] Dillon Lal Primary Care 01/23/2022 11/04/2023
--- OUTSIDE RECORDS SUMMARY | 2024-10-13 11:29 | XMS_ITS | Encounter Summary ---
Author Organization [facility] Address [address] [place] [address] Care Team Providers Care Porcelain Finisher Name Role Phone Ludivina Morales MD Primary Care Provider [phone] Reason for Visit * Reason Onset Date Comments chronometer assembler and adjuster 10/07/2024 Encounter Details Date Type Department Care Team (Late st Contact Info) Description 10/07/2024 Telephone Internal Medicine - [facility] [address] [phone] Ludivina Morales MD [address] [place], [place] chronometer assembler and adjuster Social History Tobacco Use Types Packs/Day Years Used Date Smoking Tobacco: Never Smokeless Tobacco: Never Alcohol Use Standard Drinks/Week Comments No 0 (1 standard drink = 0.6 oz pur e alcohol) Sex and Gender Information Value Date Recorded Sex Assigned at Not on file Legal Sex Male 11:07 PM EST Gender Identity Not on file Sexual Orientation Not on file documented as of this encounter Progress Notes * Helen Campuzano - 10/13/2024 11:03 AM EDT Received request from [employer] Tender for 04/16/25 visit * Helen Campuzano - 10/08/2024 12:52 PM EDT Requested an chronometer assembler and adjuster for 04/16/2025 for [facility] . * Ana Laura Eugene - 10/07/2024 4:20 PM EDT Pt needs a civil engineering design draftsperson for 04-16-24 appt documented in this encounter Plan of Treatment Upcoming Encounters Date Type Department Care Team (Late st Contact Info) Description 04/16/2025 9:30 AM EST Office Visit Internal Medicine - [address] [phone] Bernadette Potts NP [address] [place] [address] documented as of this encounter Visit Diagnoses Not on filedocumented in this encounter Care Teams Porcelain Finisher Relationship Specialty Start Date End Date Ludivina Morales MD [address] [place] [address] PCP - General Internal Medicine 10/07/24 documented as of this encounter
--- OUTSIDE RECORDS SUMMARY | 2024-10-13 11:29 | XMS_ITS | Clinical Summary ---
Author Organization [facility] Address [address] [place] [address] [place] [id number] Phone Care Team Providers Care Parcel Contractor Name Role Phone Dillon Lal MD Primary Care Provider [phone] Allergies Active Allergy Reactions Criticality Noted Date Comments Propoxyphene N-Acetaminophen Unknown Low Oxycodone-Acetaminophen Unknown Low 07/20/2018 Sulfa (Sulfonamide Antibiotics) Unknown Low 01/16 Terazosin Unknown Low 07/20/2018 Medications OMEPRAZOLE ORAL Take 40 mg by mouth daily. 08/28/19 19 Active hydroxychloroquine (PLAQUENIL) 200 mg tablet Take 200 mg by mouth daily. 08/28/19 19 Active cetirizine (ZYRTEC) 10 MG tablet Take 10 mg by mouth daily. 08/28/19 19 Active multivitamins capsule Take 1 capsule by mouth daily. 08/28/19 19 Active latanoprost (XALATAN) 0.005 % ophthalmic solution Place 1 drop into each eye nightly at bedtime. 08/28/19 19 Active timolol (ISTALOL) 0.5 % DrpD ophthalmic solution Place 1 drop into each eye daily. Active ondansetron (ZOFRAN-ODT) 4 MG disintegrating tablet Take 1 tablet (4 mg total) by mouth every 8 (eight) hours as needed for nausea. 20 tablet 01/28/20 18 Active Additional Information Patient not taking.Reported on 03/23/2019 calcium carbonate/vitamin D3 (CALCIUM 600 WITH VITAMIN D3 ORAL) Take 1 tablet by mouth daily. 08/28/19 Active saw palmetto fruit 450 mg Cap Take 450 mg by mouth daily. 01/07/20 Active cephalexin (KEFLEX) 500 MG capsule Take 1 capsule (500 mg total) by mouth 3 (three) times a day. 9 capsule 03/25/19 Active Additional Information Patient not taking.Reported on 07/31/2020 methylPREDNISolone (MEDROL DOSEPACK) 4 mg tablet follow package directions 21 tablet 05/13/19 Active Additional Information Patient not taking.Reported on 06/30/2022 morphine (MSIR) 15 MG tablet Take 0.5 tablets (7.5 mg total) by mouth every 4 (four) hours as needed for pain (specific location in comments). Partial fill ok 5 tablet 05/13/19 Active Additional Information Patient not taking.Reported on 06/30/2022 traMADoL (ULTRAM) 50 mg tablet Take 1 tablet (50 mg total) by mouth every 6 (six) hours as needed for pain (specific location in comments). 5 tablet 12/06/19 Active Additional Information Patient not taking.Reported on 06/30/2022 Active Problems No known active problems Immunizations Immunization Administration Dates Next Due COVID-19 (Pre-01/07) Pfizer Vaccine, mRNA, PF ,06/11/2020 Social History Tobacco Use Types Packs/Day Years Used Date Smoking Tobacco: Never Smokeless Tobacco: Never Alcohol Use Standard Drinks/Week Comments No 0 (1 standard drink = 0.6 oz pur e alcohol) Education Answer Date Recorded Are you interested in more education? Not on farhat e 07/13/2022 Are you concerned about learning? Not on file 07/13/2022 No 07/13/2022 No 07/13/2022 Digital Access Answer Date Recorded No 08/11/2022 No 08/11/2022 Reliable internet access at home? Not on file 08/11/2022 Device with a working camera? Not on file Intimate Partner Violence Answer Date R ecorded Are you denied basic needs s uch as food, clothing, or medical care? No 06/30/2022 In the past 12 months have y ou been in a relationship with a person who hurts, threatens, or tries to control you? No 06/30/2022 Are you denied basic needs s uch as food, clothing, or medical care? No 06/30/2022 In the past 12 months have y ou been in a relationship with a person who hurts, threatens, or tries to control you? No 06/30/2022 Sex and Gender Information Value Date Recorded Sex Assigned at Male 07/20/2018 9:44 AM EDT Legal Sex Male 10:07 PM EDT Gender Identity Male 07/20/2018 9:44 AM EDT Sexual Orientation Straight 07/20/2018 9: 44 AM EDT Last Filed Vital Signs Vital Sign Reading Time Taken Comments Blood Pressure 125/82 07/18/2023 12:33 PM EDT Pulse 75 07/18/2023 12:33 PM EDT Temperature 36.6 C (97.8 F) 07/18/2023 12:33 PM EDT Respiratory Rate 17 07/18/2023 12:33 PM EDT Oxygen Saturation 99% 07/18/2023 12:33 PM EDT Inhaled Oxygen Concentration - - Weight 56.7 kg (125 lb) 07/18/2023 12:33 PM EDT Height 167.6 cm (5' 6 ) 07/18/2023 12:33 PM EDT Body Mass Index 20.18 07/18/2023 12:33 PM EDT Plan of Treatment Health Maintenance Due Date Last Done Comments LIPID PANEL 1946 DEPRESSION SCREENING 1958 HEPATITIS C SCREENING 1964 ZOSTER VACCINES (2 of 3) 04/13/2011 02/16/2011 RSV VACCINE (1 - 1-dose 75+ series) 2021 Adult Td,Tdap Booster 10/28/2021 10/29/2011 , 08/18/2007, 05/12/2001 COVID-19 VACCINE (3 - 2023-2 5 season) 2023 07/02/2020, 06/11/2020 PNEUMOCOCCAL VACCINES (50+ years) Completed 03/10/2015, 03/03/2012, 07/18/2005 SMOKING STATUS SCREENING (On ce After 26 Yrs) Completed 07/18/2023 HEPATITIS A VACCINES Aged Out No long er eligible based on patient's age to complete this topic HIB VACCINES Aged Out No longer eligi ble based on patient's age to complete this topic MENINGOCOCCAL VACCINES (ACWY) Aged Out No longer eligible based on patient's age to complete this topic MENINGOCOCCAL VACCINES (B) Aged Out N o longer eligible based on patient's age to complete this topic Medical Devices Not on file Insurance [facility] MEDICARE PPO BLUE REPLACEMENT [facility] MEDICARE PPO BLUE REPLACEMENT [facility] MEDICARE PPO BLUE REPLACEMENT [facility] MEDICARE PPO BLUE REPLACEMENT Advance Directives For more information, please contact: [phone] (9AM - 5PM [facility], Saturday-Saturday) Documents on File Type Date Recorded Patient Supervisory Geographer Expl anation Healthcare Proxy 03/26/2019 8:59 AM Care Teams Parcel Contractor Relationship Specialty Start Date End Date Dillon Lal MD [address] [place] [address] PCP - General Internal Medicine 10/20/21 Additional Source Comments The information contained in this document represents components of the legal health record. It is not the complete legal health record.[facility]
== END 2024-10-13 11:17 | disposition home or self-care (01) ==
LOC: HO.RHES 10:30
PROVIDERS: PCP Internal Medicine; Visit Provider Internal Medicine Rheumatology
DX: S76.012A Strain of muscle, fascia and tendon of left hip, initial encounter (principal); M06.9 Rheumatoid arthritis, unspecified; M10.9 Gout, unspecified
CPT/HCPCS: 99213; G2211

== ENCOUNTER → 2024-10-13 10:29 | Outpatient (BNVA) | payer MEDICARE, SELFPAY | PROVIDERS: PCP Internal Medicine; Visit Provider Internal Medicine Rheumatology | DX: S76.012A Strain of muscle, fascia and tendon of left hip, initial encounter (principal); M06.9 Rheumatoid arthritis, unspecified; M10.9 Gout, unspecified | CPT/HCPCS: 99212 ==